=== PATIENT | male | born 1985 | race Two or more races ===

== ENCOUNTER 2018-11-23 17:51 | Emergency (ER) | payer OTHER ==
--- NOTE | 2018-11-23 18:23 | ED Physician Chart ---
ED Chief Complaint/HPI - Patient Information Date Seen:: 11/23/18 Time Seen:: 18:10 Chief Complaint:: cough History of Present Illness:: Patient had cough and congestion for 3 days. Sputum was initially yellow now is clear. Temperature not taken. Did not have any influenza vaccination this year. Allergies:: Allergies Allergy/AdvReac Type Severity Reaction Status Date / Time No Known Allergies Allergy Verified 11/23/18 18:09 Vitals:: Vital Signs - 8 hr 11/23/18 18:09 Temp 100.6 F HR 104 RR 17 BP 119/78 O2 Sat % 98 Historian:: Patient Review:: Nurse's Note Reviewed ED Review of Systems - Review of Systems General/Constitutional: Fever, Other (subjective fever) Skin: No skin lesions Head: No headache Eyes: No loss of vision ENT: No earache Neck: No neck pain, No swelling Cardio Vascular: No chest pain, No palpitations Pulmonary: No SOB GI: No nausea, No vomiting, No diarrhea G/U: No dysuria Musculoskeletal: No bone or joint pain Endocrine: No polyuria, No polydipsia Psychiatric: No prior psych history, No depression, No anxiety Hematopoietic: No bruising Allergic/Immuno: No urticaria Neurological: No syncope, No focal symptoms ED Past Medical History - Past Medical History Past Medical History: Other ("tachycardia": episodes of atrial fibrillation flutter last episode about 2 years ago) Family History: None Social History: Non Smoker, Alcohol Surgical History: None Psychiatricy History: None Medication: None ED Physical Exam - Physical Examination General/Constitutional: Awake, Well-developed, well-nourished, Alert Head: Atraumatic Eyes: Lids, conjuctiva normal, PERRL Skin: Nl inspection, No rash ENMT: External ears, nose nl Other ENMT comments:: Left ceruminosis; right tympanic membrane clear Neck: No nuchal rigidity Respiratory: Nl effort/Exclusion, Clear to Auscultation, No Wheeze/Rhonchi/Rales Cardio Vascular: RRR, No murmur, gallop, rubs, NL S1 S2 GI: No tenderness/rebounding/guarding, No organomegaly, No hernia Extremities: No tenderness or effusion ED Assessment - Assessment General Assessment: Influenza A and B-. Patient is not here at 1854 and possibly eloped from the emergency department. ED Septic Shock - . Is Septic Shock (SBP<90, OR Lactate>4 mmol\\L) present?: No - <6hrs of presentation: Vital Signs: Vital Signs - 8 hr 11/23/18 18:09 Temp 100.6 F HR 104 RR 17 BP 119/78 O2 Sat % 98 ED Reassessment (Disposition) - Reassessment Reassessment Condition:: Unchanged - Diagnosis Diagnosis:: Acute viral syndrome - Aftercare/Follow up Instructions Aftercare/Follow-Up Instructions:: Refer to Discharge Instructions - Patient Disposition Discharge/Transfer:: Home Condition at Disposition:: Stable, Unchanged
[2018-11-23 18:51] LABS: INF A SCREEN NEG FOR INF A; INF B SCREEN NEG FOR INF B
== END 2018-11-23 18:54 | disposition home or self-care (01) ==
LOC: ER 17:51
DX: B34.9 Viral infection, unspecified (principal)
CPT/HCPCS: 87804-TC; Z7502; Z7610